=== PATIENT | female | born 1975 | race Two or more races ===

== ENCOUNTER 2022-01-16 14:10 | Emergency (ER) | payer OTHER ==
[~2022-01-16] VITALS: Ht 175.3 cm; Wt 90.4 kg
[2022-01-16 14:42] VITALS: BP 113/66
== END 2022-01-16 15:51 | disposition left against medical advice (07) ==
LOC: ER 14:10
DX: R05.9 Cough, unspecified (principal); R09.81 Nasal congestion; R51.9 Headache, unspecified; M79.10 Myalgia, unspecified site; Z53.21 Procedure and treatment not carried out due to patient leaving prior to being seen by health care provider